=== PATIENT | male | born 1945 | race Caucasian/White ===

== ENCOUNTER 2016-08-03 13:03 | Observation (INO) | payer OTHER ==
[~2016-08-03] VITALS: Ht 177.8 cm; Wt 102.7 kg
[2016-08-03] VITALS (14 sets, daily range): BP systolic 97–139; BP diastolic 62–82
[~2016-08-03 13:03] MED LIST: ASPIRIN325 MG PO; BUPROPION XL150 MG PO; BUPROPION XL300 MG PO; Berocca Plus PO; CARDIZEM60 MG PO; CITALOPRAM HBR20 MG PO; COUMADIN1 MG PO; COUMADIN5 MG PO; DAILY VITAMIN1 EAC8 PO; DIGOXIN125 MCG PO; FLONASE16 G1 BOTH NARES; GLUCOPHAGE500 MG PO; Glucophage PO; HYDROCHLOROTHIA25 MG PO; IBUPROFEN800 MG PO; LEVAQUIN750 MG PO; LISINOPRIL10 MG PO; LISINOPRIL20 MG PO; LISINOPRIL40 MG PO; METFORMIN HCL500 MG PO; MUCINEX1200 MG PO; Motrin PO; OMEPRAZOLE40 M1 PO; PANTOPRAZOLE SO40 MG PO; PRILOSEC20 MG PO; PROVENTIL HFA6.7 GM IH; Paxil PO; PriLOSEC PO; Proventil,Ventolin H IH; SERTRALINE HCL50 MG PO; SIMVASTATIN10 MG PO; TRAZODONE HCL50 MG PO; TYLENOL REGULA325 MG PO; VENTOLIN HFA18 GM IH; WELLBUTRIN XL300 MG PO; ZESTRIL,PRINIVI10 M1 PO; ZESTRIL10 MG PO; ZITHROMAX Z-PA250 MG PO; ZOCOR20 MG PO; ZOCOR40 MG PO; ZOLPIDEM TARTRA10 MG PO; Zocor PO; risperDAL PO
[2016-08-03] MEDS ORDERED: ATORVASTATIN CA40 MG PO (13:53)
[2016-08-03 14:00] LABS: EOSINOPHIL (%) 1.6 % (0-5); EOSINOPHIL COUNT 0.1 K/uL (0-0.3); HEMATOCRIT 39.9 % (38.0-50.0); IMMATURE GRANULOCYTE (%) 0.2 % (0.0-0.7); IMMATURE GRANULOCYTE COUNT 0.2 K/uL; LYMPHOCYTE COUNT 1.9 K/uL (1.0-2.8); MCH 32.7 PG (29.0-34.0); MCHC 36.1 G/DL (30.0-36.0); MCV 90.7 FL (86-99); MEAN PLAT.VOLUME 10.9 uM^3 (9.0-12.4); MONOCYTE (%) 6.7 % (3-12); MONOCYTE COUNT 0.6 K/uL (0-0.8); NEUTROPHIL (%) 70.1 % (45-76); NEUTROPHIL COUNT 6.2 K/uL (1.8-6.4); PLATELET COUNT 185 K/uL (156-360); RBC DIS.WIDTH-CV 11.6 % (11.8-14.6); RBC DIS.WIDTH-SD 37.2 % (39-53); WHITE BLOOD COUNT 8.8 K/uL (4.1-10.2)
[2016-08-03 14:18] LABS: CHLORIDE 103 mEq/L (99-109); POTASSIUM 4.6 mEq/L (3.7-5.4); SODIUM 137 mEq/L (136-147)
[2016-08-03 14:20] LABS: GLUCOSE 101 mg/dL (70-99)
[2016-08-03 14:21] LABS: ANION GAP 12 MEQ/L (2-14)
[2016-08-03 14:24] LABS: GFR ESTIMATE (CALCULATED) > 59 mL/min/; UREA NITROGEN (BUN) 16 mg/dL (9-23)
[2016-08-03 14:28] LABS: TROP-I INTERPRETATION NEGATIVE; TROPONIN-I 0.01 ng/mL (0.0-0.30)
[2016-08-03] MEDS ORDERED: OMEPRAZOLE40 M1 PO (17:56)
[2016-08-03] MEDS ORDERED: DAILY VALUE1 EACH PO (17:57)
[2016-08-03] MEDS ORDERED: MOTRIN800 MG PO (17:57)
[2016-08-03] MEDS ORDERED: [UNRECOGNIZED DRUG - OTHER] PO (18:01)
[2016-08-03 21:32] LABS: TROP-I INTERPRETATION NEGATIVE; TROPONIN-I 0.02 ng/mL (0.0-0.30)
[2016-08-03 21:39] LABS: POINT-OF-CARE METER ID UU13113700
[2016-08-04] VITALS: BP 132/78
[2016-08-04 03:19] LABS: TROP-I INTERPRETATION NEGATIVE; TROPONIN-I < 0.01 ng/mL (0.0-0.30)
[2016-08-04 03:56] LABS: HDL CHOLESTEROL 40 MG/DL (Desirable>=40); LDL CHOLESTEROL 35 mg/dL (Desirable<100); NON-HDL CHOLESTEROL 75 mg/dL (Desirable<160); TOTAL CHOLESTEROL 115 mg/dL (Desirable<200); TRIGLYCERIDES 199 MG/DL (Normal: <150)
[2016-08-04 04:51] VITALS: BP 115/64
[2016-08-04 07:06] LABS: Estimated Average Glucose 120 mg/dL (70-123); HEMOGLOBIN A1c (GLYCOHEMOGLOB) 5.8 % HGB (Below 5.7)
[2016-08-04 07:26] VITALS: BP 119/76
[2016-08-04 07:37] LABS: POINT-OF-CARE METER ID UU14162513
[2016-08-04] MEDS ORDERED: Thiamine,Vitamin B1 PO (10:14)
[2016-08-04] MEDS ORDERED: NICOTINE PATCH1 EAC1 TD (10:14)
[2016-08-04] MEDS ORDERED: FOLIC ACID1 MG PO (10:14)
== END 2016-08-04 11:41 | disposition home or self-care (01) ==
LOC: EME → EDBD 13:03 → EDOF 19:42 → 5WEST 19:42 → EDOF 19:42 → 5WEST 20:32
PROVIDERS: Emergency Medicine; Family Medicine; Hospitalist; Physician Assistant Medical
DX: R07.89 Other chest pain (principal); I44.0 Atrioventricular block, first degree; I45.19 Other right bundle-branch block; I48.0 Paroxysmal atrial fibrillation; F60.9 Personality disorder, unspecified; I10 Essential (primary) hypertension; E78.5 Hyperlipidemia, unspecified; E11.9 Type 2 diabetes mellitus without complications; K21.9 Gastro-esophageal reflux disease without esophagitis; F17.210 Nicotine dependence, cigarettes, uncomplicated; F10.20 Alcohol dependence, uncomplicated; Z79.82 Long term (current) use of aspirin; E66.9 Obesity, unspecified; Z68.32 Body mass index [BMI] 32.0-32.9, adult
CPT/HCPCS: 74176; 80048; 80061; 82272; 82948; 83036; 84484; 85025; 86850; 86900; 86901; 93005; 99281; 99285; G0378; J1170; J1650; J1815; J2405; J7050

== ENCOUNTER 2017-01-02 12:57 | Emergency (ER) | payer OTHER ==
[~2017-01-02] VITALS: Ht 177.8 cm; Wt 109.7 kg
[~2017-01-02 12:57] MED LIST changes: +ATORVASTATIN CA40 MG PO; +DAILY VALUE1 EACH PO; +FOLIC ACID1 MG PO; +MOTRIN800 MG PO; +NICOTINE PATCH1 EAC1 TD; +Thiamine,Vitamin B1 PO; +[UNRECOGNIZED DRUG - OTHER] PO
[2017-01-02] MEDS ORDERED: MOBIC7.5 MG PO (15:14)
[2017-01-02] MEDS ORDERED: TRAMADOL HCL50 MG PO (15:14)
[2017-01-02 15:28] VITALS: BP 150/70
== END 2017-01-02 15:28 | disposition home or self-care (01) ==
LOC: EME 12:57
DX: M19.012 Primary osteoarthritis, left shoulder (principal); G89.29 Other chronic pain; M54.2 Cervicalgia; F17.200 Nicotine dependence, unspecified, uncomplicated; Z79.82 Long term (current) use of aspirin; Z79.84 Long term (current) use of oral hypoglycemic drugs
CPT/HCPCS: 73030; 99281; 99283

== ENCOUNTER 2017-01-22 16:34 | Emergency (ER) | payer OTHER ==
[~2017-01-22] VITALS: Ht 180.3 cm; Wt 103.9 kg
[~2017-01-22 16:34] MED LIST changes: +MOBIC7.5 MG PO; +TRAMADOL HCL50 MG PO
[2017-01-22 16:39] VITALS: BP 159/91
== END 2017-01-22 18:12 | disposition home or self-care (01) ==
LOC: EME 16:34
DX: S61.216A Laceration without foreign body of right little finger without damage to nail, initial encounter (principal); Z23 Encounter for immunization; W23.0XXA Caught, crushed, jammed, or pinched between moving objects, initial encounter
CPT/HCPCS: 73140; 99281; 99284

== ENCOUNTER 2017-04-15 08:53 | Emergency (ER) | payer OTHER ==
[~2017-04-15] VITALS: Ht 177.8 cm; Wt 110.8 kg
[2017-04-15] MEDS ORDERED: VENTOLIN HFA18 GM IH (10:29)
[2017-04-15] MEDS ORDERED: TESSALON200 MG PO (10:29)
[2017-04-15 10:41] LABS: INFLUENZA A VIRAL ANTIGEN NEGATIVE; INFLUENZA B VIRAL ANTIGEN NEGATIVE
[2017-04-15] MEDS ORDERED: CARTIA XT120 MG PO (10:59)
[2017-04-15] MEDS ORDERED: CHLORTHALIDONE25 MG PO (10:59)
[2017-04-15] MEDS ORDERED: SERTRALINE HCL100 MG PO (10:59)
[2017-04-15 11:22] VITALS: BP 116/75
== END 2017-04-15 11:23 | disposition home or self-care (01) ==
LOC: EME 08:53
PROVIDERS: Nurse Practitioner Family
DX: J06.9 Acute upper respiratory infection, unspecified (principal); F17.200 Nicotine dependence, unspecified, uncomplicated; E11.9 Type 2 diabetes mellitus without complications; Z79.84 Long term (current) use of oral hypoglycemic drugs; K21.9 Gastro-esophageal reflux disease without esophagitis; Z79.82 Long term (current) use of aspirin; Z91.040 Latex allergy status
CPT/HCPCS: 71020; 87502; 99281; 99284

== ENCOUNTER 2017-08-03 09:15 | Emergency (ER) | payer OTHER ==
[~2017-08-03] VITALS: Ht 180.3 cm; Wt 111.9 kg
[~2017-08-03 09:15] MED LIST changes: +CARTIA XT120 MG PO; +CHLORTHALIDONE25 MG PO; +SERTRALINE HCL100 MG PO; +TESSALON200 MG PO
[2017-08-03 10:35] LABS: HEMATOCRIT 39.6 % (38.0-50.0); HEMOGLOBIN 14.3 G/DL (12.5-16.6); MCH 33.4 PG (29.0-34.0); MCHC 36.1 G/DL (30.0-36.0); MCV 92.5 FL (86-99); PLATELET COUNT 183 K/uL (156-360); RBC DIS.WIDTH-CV 11.4 % (11.8-14.6); RBC DIS.WIDTH-SD 38.5 % (39-53); RED BLOOD COUNT 4.28 M/uL (4.00-5.50); WHITE BLOOD COUNT 8.2 K/uL (4.1-10.2)
[2017-08-03 10:44] LABS: CHLORIDE 101 mEq/L (99-109); POTASSIUM 3.9 mEq/L (3.7-5.4); SODIUM 136 mEq/L (136-147)
[2017-08-03 10:45] LABS: GLUCOSE 92 mg/dL (70-99)
[2017-08-03 10:49] LABS: CREATININE 1.1 mg/dL (0.6-1.3); GFR ESTIMATE (CALCULATED) > 59 mL/min/ (58.99-99999)
[2017-08-03 10:50] LABS: UREA NITROGEN (BUN) 15 mg/dL (9-23)
[2017-08-03 10:59] LABS: TROP-I INTERPRETATION NEGATIVE; TROPONIN-I 0.01 ng/mL (0.0-0.30)
[2017-08-03 11:45] VITALS: BP 121/89
== END 2017-08-03 11:47 | disposition left against medical advice (07) ==
LOC: EME 09:15
PROVIDERS: Nurse Practitioner Family
DX: R06.09 Other forms of dyspnea (principal); R05 Cough; I44.0 Atrioventricular block, first degree; R94.31 Abnormal electrocardiogram [ECG] [EKG]; F17.200 Nicotine dependence, unspecified, uncomplicated; E11.9 Type 2 diabetes mellitus without complications; I10 Essential (primary) hypertension; I48.91 Unspecified atrial fibrillation; E78.00 Pure hypercholesterolemia, unspecified; K21.9 Gastro-esophageal reflux disease without esophagitis; Z79.84 Long term (current) use of oral hypoglycemic drugs; Z79.82 Long term (current) use of aspirin; Z85.9 Personal history of malignant neoplasm, unspecified; Z90.49 Acquired absence of other specified parts of digestive tract; Z91.5 Personal history of self-harm; Z91.040 Latex allergy status
CPT/HCPCS: 71046; 80048; 83880; 84484; 85027; 93005; 99281; 99285

== ENCOUNTER 2017-12-09 13:47 | Emergency (ER) | payer OTHER ==
[~2017-12-09] VITALS: Ht 180.3 cm; Wt 109.3 kg
[2017-12-09 15:10] LABS: APPEARANCE CLEAR ((CLEAR)); BILIRUBIN NEGATIVE; BLOOD NEGATIVE; COLOR YELLOW ((YELLOW)); GLUCOSE (STRIP) NEGATIVE; KETONES NEGATIVE; LEUKOCYTES NEGATIVE; NITRITE NEGATIVE; PROTEIN (STRIP) NEGATIVE; SPECIFIC GRAVITY 1.015 (1.000-1.030); UCUL ADDED? NO; UROBILINOGEN 0.2 MG/DL (0.2-1.0)
[2017-12-09 15:10] LABS: HEMATOCRIT 39.4 % (38.0-50.0); HEMOGLOBIN 14.3 G/DL (12.5-16.6); MCH 33.4 PG (29.0-34.0); MCHC 36.3 G/DL (30.0-36.0); MCV 92.1 FL (86-99); PLATELET COUNT 174 K/uL (156-360); RBC DIS.WIDTH-CV 11.7 % (11.8-14.6); RBC DIS.WIDTH-SD 39.3 % (39-53); RED BLOOD COUNT 4.28 M/uL (4.00-5.50)
[2017-12-09 15:23] LABS: CHLORIDE 104 mEq/L (99-109); POTASSIUM 3.4 mEq/L (3.7-5.4); SODIUM 139 mEq/L (136-147)
[2017-12-09 15:25] LABS: GLUCOSE 104 mg/dL (70-99)
[2017-12-09 15:29] LABS: CREATININE 1.1 mg/dL (0.6-1.3); GFR ESTIMATE (CALCULATED) > 59 mL/min/ (58.99-99999)
[2017-12-09 15:30] LABS: UREA NITROGEN (BUN) 15 mg/dL (9-23)
[2017-12-09 16:34] LABS: ALBUMIN 4.7 g/dL (3.2-4.8)
[2017-12-09 16:37] LABS: TOTAL PROTEIN 6.9 g/dL (6.4-8.3)
[2017-12-09 16:39] LABS: TOTAL BILIRUBIN 0.9 mg/dL (0.0-1.0)
[2017-12-09 16:40] LABS: ALKALINE PHOSPHATASE 98 IU/L (3-129)
[2017-12-09 16:42] LABS: AST (GOT) 25 IU/L (2-34)
[2017-12-09 16:43] LABS: ALT (GPT) 31 IU/L (3-49); DIRECT BILIRUBIN 0.4 mg/dL (0.0-0.3)
[2017-12-09 16:44] LABS: LIPASE 29 U/L (1.0-51.0)
[2017-12-09] MEDS ORDERED: FLOMAX0.4 MG PO (18:02)
[2017-12-09] MEDS ORDERED: NAPROSYN500 MG PO (18:02)
[2017-12-09 18:25] VITALS: BP 138/74
== END 2017-12-09 18:29 | disposition home or self-care (01) ==
LOC: EME 13:47
DX: N20.0 Calculus of kidney (principal); Z87.442 Personal history of urinary calculi; K40.20 Bilateral inguinal hernia, without obstruction or gangrene, not specified as recurrent; E11.9 Type 2 diabetes mellitus without complications; K21.9 Gastro-esophageal reflux disease without esophagitis; F17.200 Nicotine dependence, unspecified, uncomplicated; Z90.49 Acquired absence of other specified parts of digestive tract; Z79.84 Long term (current) use of oral hypoglycemic drugs; Z79.82 Long term (current) use of aspirin; Z91.040 Latex allergy status
CPT/HCPCS: 74176; 80048; 80076; 81003; 83690; 85027; 99281; 99284; J1885